=== PATIENT | female | born 1960 | race Caucasian/White ===

== ENCOUNTER 2016-07-20 16:46 | Emergency (ER) | payer OTHER ==
--- NOTE | 2016-07-20 18:54 | DIAGNOSTIC IMAGING REPORT ---
PROCEDURE: XR ABD SERIES 2V ABD/1V CHEST INDICATION: Right pain. Nausea and vomiting. History stones. TECHNIQUE: AP supine and upright views with PA view chest. COMPARISON: Compare radiographs of the lumbar spine on 11/21/2015. FINDINGS: ABDOMEN: Bowel pattern is within normal limits (mild gaseous distention). No evidence of free air. There is a large 5 cm calcified uterine fibroid overlying the lower pelvis. Mild dextroscoliosis and degenerative changes of the lumbar spine. CHEST: Lungs are clear. Heart and mediastinum are normal. Thorax is normal. IMPRESSION: 1. Negative acute abdomen. 2. Negative chest.
--- NOTE | 2016-07-20 19:09 | ED CLINICAL REPORT ---
Clinical Report - Physicians/Mid Levels [facility] [address] [place] [address] 07/20/2016 16:47 Patient: LAURA ROQUE Time Seen: 17:04. Arrived- By private vehicle. Historian- patient. HISTORY OF PRESENT ILLNESS Chief Complaint: FLANK PAIN. This started today at about 1:30 and still present. It was abrupt in onset and has been constant and waxing/waning. The symptoms are described as severe. Modifying factors- worsened by movement. The patient has had severe right-sided flank pain. No pelvic pain, pain with urination, urinary frequency, urgency of urination or hematuria. The patient is post-menopausal. REVIEW OF SYSTEMS No calf pain, chest pain, difficulty breathing, pedal edema or palpitations. No black stools, bloody stools or constipation. She has had a mild cough productive of green sputum. She has had mild loose stools. She has had nausea. She has had vomiting ("dry heaves"). The vomiting has occurred several times. No blood-tinged emesis, coffee-grounds emesis or frankly bloody emesis. All systems otherwise negative, except as recorded above. PAST HISTORY ( PCP - [place]). SOCIAL HISTORY Current every day light tobacco smoker (cigarette)- less than 1/2 a pack per day. Alcohol use; consumes five wine daily. No drug use. Residence: [place] she lives with a family member. FAMILY HISTORY Stroke in first-degree relative (mother). ADDITIONAL NOTES The nursing notes have been reviewed. PHYSICAL EXAM Vital Signs: 07/20/2016 16:57 BP: 176/107. HR: 75. RR: 18. O2 saturation: 99%. Temp: 98.4 F. Have been reviewed. Appearance: Alert. Anxious. ENT: Pharynx normal. Neck: Neck supple. CVS: Heart sounds normal. Respiratory: No respiratory distress. (Diffuse rattles over large airways that clear with cough). Abdomen: Soft and nontender. Bowel sounds normal. No organomegaly. No mass. Back: Normal external inspection. No CVA tenderness. Skin: Skin warm and dry. Normal skin color. Normal skin turgor. Extremities: Extremities nontender. No calf tenderness. No lower extremity edema. LABS, X-RAYS, AND EKG KUB: ( Exam(s): XR ABD SERIES 2V ABD/1V CHEST Date of Exam: 07/20/2016 __ PROCEDURE: XR ABD SERIES 2V ABD/1V CHEST INDICATION: Right pain. Nausea and vomiting. History stones. TECHNIQUE: AP supine and upright views with PA view chest. COMPARISON: Compare radiographs of the lumbar spine on 11/21/2015. FINDINGS: ABDOMEN: Bowel pattern is within normal limits (mild gaseous distention). No evidence of free air. There is a large 5 cm calcified uterine fibroid overlying the lower pelvis. Mild dextroscoliosis and degenerative changes of the lumbar spine. CHEST: Lungs are clear. Heart and mediastinum are normal. Thorax is normal. IMPRESSION: 1. Negative acute abdomen. 2. Negative chest.). The X-rays were interpreted by the radiologist and contemporaneously by me. Laboratory Tests: UA-Culture if indicated: (MIGUEL ÁNGEL: 07/20/2016 16:58) ( MsgRcvd 07/20/2016 17:28) Final results Test Result Flag Units (Reference) URINE COLOR STRAW URINE APPEARANCE CLEAR URINE GLUCOSE NEGATIVE (NEGATIVE) URINE BILIRUBIN NEGATIVE (NEGATIVE) URINE KETONE NEGATIVE (NEGATIVE) URINE SPECIFIC GRAVITY <= 1.005 L (1.010-1.030) URINE PH 6.5 (5.0-8.0) URINE PROTEIN NEGATIVE (NEGATIVE) URINE UROBILINOGEN 0.2 EU/dL (0.2-1.0) URINE NITRITE NEGATIVE (NEGATIVE) URINE BLOOD NEGATIVE (NEGATIVE) URINE LEUK ESTERASE NEGATIVE (NEGATIVE) URINE RBC NONE SEEN rbc/hpf (0-1) URINE WBC 0-1 wbc/hpf (0-1) URINE EPITHELIAL CELLS 0-1 EPI/hpf (0-5) URINE BACTERIA TRACE (<1+) (NONE SEEN) URINE COMMENT CULT NOT INDICATED URINE CULTURES ARE SET-UP BASED ON THE FOLLOWING CRITERIA:POSITIVE NITRITEPOSITIVE LEUKOCYTE ESTERASEGREATER THAN 10 WHITE BLOOD CELLSMODERATE (2+) OR GREATER BACTERIA CBC w Diff: (MIGUEL ÁNGEL: 07/20/2016 17:08) ( [facility] [place] 07/20/2016 17:33) Final results Test Result Flag Units (Reference) WHITE BLOOD COUNT 10.8 K/uL (4.5-11.5) RED BLOOD COUNT 4.65 M/uL (4.00-5.20) HEMOGLOBIN 14.9 gm/dL (12.0-16.0) HEMATOCRIT 44.4 % (36.0-46.0) MEAN CELL VOLUME 96 fL (80-100) MEAN CORPUSCULAR HGB 32 pg (26-34) MEAN CORPUSCULAR HGB CONC 34 g/dL (31-37) RED CELL DISTRIBUTION WIDTH 13.3 % (11.6-14.8) PLATELET COUNT 241 K/uL (150-400) NEUTROPHIL % 67.1 % (50-75) LYMPH % 25.7 % (25-40) MONO % 5.3 % (3-14) EOSINOPHIL % 1.7 % (0-4) BASOPHIL % 0.2 % (0-2) CMP: (MIGUEL ÁNGEL: 07/20/2016 17:08) ( [facility] [place] 07/20/2016 17:39) Final results Test Result Flag Units (Reference) GLUCOSE 83 mg/dL (70-110) BUN 14 mg/dL (7-18) CREATININE 0.6 mg/dL (0.6-1.3) Estimated GFR >60 mL/min Estimated GFR- >60 mL/min Note: Persistent reduction over 3 months in eGFR<60 mL/min/1.73 m2 defines CKD. Patients with eGFR values>=60 mL/min/1.73 m2 may also have CKD if evidence ofpersistent proteinuria. Additional information may be foundat [email or web address].org. SODIUM 133 L mmol/L (136-145) POTASSIUM 4.3 mmol/L (3.5-5.1) CHLORIDE 97 L mmol/L (98-107) CARBON DIOXIDE 26 mmol/L (21-32) CALCIUM 8.8 mg/dL (8.5-10.1) TOTAL PROTEIN 7.4 g/dL (6.4-8.2) ALBUMIN 4.0 g/dL (3.3-5.0) BILIRUBIN, TOTAL 0.3 mg/dL (0.0-1.0) ALKALINE PHOSPHATASE 86 U/L (46-116) AST (SGOT) 30 U/L (15-37) ALT (SGPT) 33 U/L (12-78) LIPASE 270 U/L (73-393) AMYLASE 49 U/L (25-115) . PROGRESS AND PROCEDURES Course of Care: we discussed the potential benefits and risks of CT imaging. After this discussion the patient said that she did not want to pursue a CT study at this time and acknowledges the risk for a missed or erroneous diagnosis. Symptoms better. Vital signs have been reviewed. Physical exam findings are improved. Patient/family counseled. Old medical records reviewed. Disposition: Discharged. Condition: stable. CLINICAL IMPRESSION Acute bronchitis. Acute right flank pain INSTRUCTIONS Drink plenty of fluids. Do not smoke- benefits of smoking cessation discussed (>3 -10 minutes). Seek medical help to quit smoking. Warnings: Further evaluation is necessary. GENERAL WARNINGS: Return or contact your physician immediately if your condition worsens or changes unexpectedly, if not improving as expected, or if other problems arise. Specifically return if pain returns. Your Current Medications: CONTINUE TAKING THE FOLLOWING MEDICATIONS: ALPRAZolam Oral : 0.5 mg daily. DULoxetine HCl Oral : daily. Metoprolol 25mg daily*. Prescription Medications: Zithromax 250 mg tablets: take 2 orally today, followed by 1 daily for the next 4 days. No refills. Substitution is permissible. Follow-up: Follow up with your doctor Friday in two days. Call for an appointment. Understanding of the discharge instructions verbalized by patient and family. (Electronically signed by Ken Martinez MD 07/20/2016 19:34)
--- NOTE | 2016-07-20 19:09 | ED NURSING NOTES ---
Clinical Report - Nurses [facility] [address] [place] [address] 07/20/2016 16:47 Patient: LAURA ROQUE TRIAGE Triage time 16:58. Acuity: LEVEL 3. Chief Complaint: LOW BACK PAIN and RIGHT-SIDED FLANK PAIN. Alert. No acute distress. ( Pt. states she has had kidney stones multiple times in the past and she thinks she may be passing one today.). SEPSIS SCREEN: Sepsis Screen. Negative (no infection suspected/documented). EMMANUEL COMA SCORE: [place] Coma Scale: 15- eyes open spontaneously (4); best verbal response- oriented x 4 (5); best motor response- obeys commands (6). --17:05 Lori Robles R.N. 16:57 07/20/16. BP: 176/107. HR: 75. RR: 18. O2 saturation: 99%. Temp: 98.4 F. Pain level now 8/10. --17:05 Lori Robles R.N. Weight: 63.5 kg stated. Height/Length: 64 inches Per Patient. BMI: 24. --16:59 Lori Robles R.N. Medications ALPRAZolam Oral 0.5 mg, daily. Metoprolol 25mg daily. --17:01 Lori Robles R.N. DULoxetine HCl Oral, daily. --17:02 Lori Robles R.N. Allergies Iodine contrast: "It will kill me.". --17:01 Lori Robles R.N. History Arrived by private vehicle. Historian: patient. Unaccompanied. Primary physician (Gabby). Onset. (1330 today). 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 (800mg at 1330). PAST MEDICAL HX: Immunizations: up-to-date. SOCIAL HX: Light tobacco smoker (cigarette)- less than 1/2 a pack per day. Alcohol use; consumes five wine daily. No drug use. ABUSE ASSESSMENT: Abuse assessment: The patient was asked "Do you feel safe in your home?" and "Has anyone hurt you or threatened to hurt you?". No report of abuse. NUTRITIONAL RISK ASSESSMENT: The nutritional risk assessment revealed no deficiencies. FUNCTIONAL ASSESSMENT: Functional assessment: no impairments noted. LEARNING NEEDS ASSESSMENT: The learning needs assessment revealed no barriers. --17:05 Lori Robles R.N. PROBLEMS: Fibromyalgia. Cervical Radiculopathy. Cervical Strain. Ureterolithiasis. Bronchitis. Urinary Calculi. Anxiety Reaction. Hypertension. Nephrolithiasis. --17:02 Lori Robles R.N. ADDITIONAL SURGERIES: Appendectomy. --17:02 Lori Robles R.N. Interventions ID band on patient. Ambulatory. --17:05 Lori Robles R.N. PHYSICAL ASSESSMENT Ambulatory to room. GENERAL / NEURO / PSYCH: Alert. Appears in no acute distress. HEENT: Mucous membranes are pink. RESPIRATORY: Respirations not labored. CVS: Capillary refill less than 2 seconds. SKIN: Skin is warm and dry. --17:05 Lori Robles R.N. NURSING PROGRESS NOTES Patient gowned. Head of bed elevated. Two patient identifiers checked. Call light placed in reach. Side rails up x 2. Bed placed in lowest position. Brakes of bed on. Patient ready for evaluation- chart flagged. --17:05 Lori Robles R.N. 17:07 07/20/2016 Site #1 started via IV in the right antecubital space with an 18g angiocath; one attempt. Blood drawn: rainbow set. Labeled in the presence of the patient and sent to the lab. Saline lock flushed with 10 mL saline (accessed by NURY Coleman). --17:07 Lori Robles R.N. Patient ID band checked for patient name, birthdate and medical record number: patient confirmed. Instructions provided to collect clean catch urine and patient verbalized understanding. Clean catch urine collected with return of yellow-colored clear urine; sample sent to lab for urinalysis. Specimen labeled in the presence of the patient. --17:07 Lori Robles R.N. 17:19 07/20/2016 Started bag #1 1000 mL IV Fluids IV NS (Saline); at 1000 mL/hr over 1 hour(s) via site #1 via IV pump. Allergies verified and confirmed 5 rights. IV patency established. IV site checked: no pain, redness, or swelling. IV flushed thoroughly pre- and post-medication administration. --17:19 Lori Robles R.N. 17:19 07/20/2016 Zofran (Ondansetron HCl) IVP 4 mg given over 1 minute(s) via site #1. Allergies verified and confirmed 5 rights. IV patency established. IV site checked: no pain, redness, or swelling. IV flushed thoroughly pre- and post-medication administration. --17:19 Lori Robles R.N. 17:35 07/20/2016 Toradol IVP 30 mg given over 2 minute(s) via site #1. Allergies verified and confirmed 5 rights. IV patency established. IV site checked: no pain, redness, or swelling. IV flushed thoroughly pre- and post-medication administration. --17:35 Lori Robles R.N. 17:52 07/20/2016 Toradol IVP Response: no adverse reaction pain is gone now. Symptoms have improved the patient feels better. --17:52 Lori Robles R.N. ( RT at the bedside for breathing treatment.). --18:22 Lori Robles R.N. 18:22 07/20/16. BP: 130/78. HR: 74. RR: 16. O2 saturation: 100%. Pain level now 0/10. --18:22 Lori Robles R.N. 18:23 07/20/2016 Duoneb (Ipratropium-Albuterol) Neb TX 1 unit dose given. Given by the respiratory therapist. Allergies verified and confirmed 5 rights. --18:23 Lori Robles R.N. Patient returned from radiology by stretcher with tech. --18:45 Lori Robles R.N. 18:57 07/20/2016 IV Fluids IV NS Discontinued: bag #1 completed upon discharge. Total amount infused: 1000 mL. IV patency established. IV site checked: no pain, redness, or swelling. IV flushed thoroughly. --19:22 Joycelyn Fallon DISPOSITION / DISCHARGE 19:20 07/20/2016 Site #1 removed upon discharge. Catheter intact. Bandage applied. --19:20 Joycelyn Fallon Departure time: 19:21. Condition at departure: improved. No learning barriers present. Discharge instructions provided and reviewed with the patient. Reviewed medication(s) side effects, precautions, dosing and course information. Prescription(s) given to the patient. Treatments reviewed. Follow up contact number. Patient verbalized understanding. Written instructions provided in Portuguese. No warning instructions, referrals given to the patient, diet instructions, activity restrictions or note given. No stop smoking instructions. The patient was discharged by the physician. She was discharged home and accompanied by family. She left the Emergency Department ambulatory and via private vehicle. Family member driving. FALL RISK ASSESSMENT: Fall risk assessment completed. No fall risk identified. --19:22 Joycelyn Fallon 19:20 07/20/16. BP: 148/89. HR: 78. RR: 18. O2 saturation: 99%. Temp: 98.5 F. Pain level now: 06/07. --19:22 Joycelyn Fallon Locked/Released at 07/20/2016 19:22 by Joycelyn Fallon
--- NOTE | 2016-07-20 19:09 | ED CLINICAL REPORT ---
Clinical Report - Physicians/Mid Levels [facility] [address] [place] [address] 07/20/2016 16:47 Patient: LAURA ROQUE Time Seen: 17:04. Arrived- By private vehicle. Historian- patient. HISTORY OF PRESENT ILLNESS Chief Complaint: FLANK PAIN. This started today at about 1:30 and still present. It was abrupt in onset and has been constant and waxing/waning. The symptoms are described as severe. Modifying factors- worsened by movement. The patient has had severe right-sided flank pain. No pelvic pain, pain with urination, urinary frequency, urgency of urination or hematuria. The patient is post-menopausal. REVIEW OF SYSTEMS No calf pain, chest pain, difficulty breathing, pedal edema or palpitations. No black stools, bloody stools or constipation. She has had a mild cough productive of green sputum. She has had mild loose stools. She has had nausea. She has had vomiting ("dry heaves"). The vomiting has occurred several times. No blood-tinged emesis, coffee-grounds emesis or frankly bloody emesis. All systems otherwise negative, except as recorded above. PAST HISTORY ( PCP - [place]). SOCIAL HISTORY Current every day light tobacco smoker (cigarette)- less than 1/2 a pack per day. Alcohol use; consumes five wine daily. No drug use. Residence: [place] she lives with a family member. FAMILY HISTORY Stroke in first-degree relative (mother). ADDITIONAL NOTES The nursing notes have been reviewed. PHYSICAL EXAM Vital Signs: 07/20/2016 16:57 BP: 176/107. HR: 75. RR: 18. O2 saturation: 99%. Temp: 98.4 F. Have been reviewed. Appearance: Alert. Anxious. ENT: Pharynx normal. Neck: Neck supple. CVS: Heart sounds normal. Respiratory: No respiratory distress. (Diffuse rattles over large airways that clear with cough). Abdomen: Soft and nontender. Bowel sounds normal. No organomegaly. No mass. Back: Normal external inspection. No CVA tenderness. Skin: Skin warm and dry. Normal skin color. Normal skin turgor. Extremities: Extremities nontender. No calf tenderness. No lower extremity edema. LABS, X-RAYS, AND EKG KUB: ( Exam(s): XR ABD SERIES 2V ABD/1V CHEST Date of Exam: 07/20/2016 __ PROCEDURE: XR ABD SERIES 2V ABD/1V CHEST INDICATION: Right pain. Nausea and vomiting. History stones. TECHNIQUE: AP supine and upright views with PA view chest. COMPARISON: Compare radiographs of the lumbar spine on 11/21/2015. FINDINGS: ABDOMEN: Bowel pattern is within normal limits (mild gaseous distention). No evidence of free air. There is a large 5 cm calcified uterine fibroid overlying the lower pelvis. Mild dextroscoliosis and degenerative changes of the lumbar spine. CHEST: Lungs are clear. Heart and mediastinum are normal. Thorax is normal. IMPRESSION: 1. Negative acute abdomen. 2. Negative chest.). The X-rays were interpreted by the radiologist and contemporaneously by me. Laboratory Tests: UA-Culture if indicated: (MIGUEL ÁNGEL: 07/20/2016 16:58) ( MsgRcvd 07/20/2016 17:28) Final results Test Result Flag Units (Reference) URINE COLOR STRAW URINE APPEARANCE CLEAR URINE GLUCOSE NEGATIVE (NEGATIVE) URINE BILIRUBIN NEGATIVE (NEGATIVE) URINE KETONE NEGATIVE (NEGATIVE) URINE SPECIFIC GRAVITY <= 1.005 L (1.010-1.030) URINE PH 6.5 (5.0-8.0) URINE PROTEIN NEGATIVE (NEGATIVE) URINE UROBILINOGEN 0.2 EU/dL (0.2-1.0) URINE NITRITE NEGATIVE (NEGATIVE) URINE BLOOD NEGATIVE (NEGATIVE) URINE LEUK ESTERASE NEGATIVE (NEGATIVE) URINE RBC NONE SEEN rbc/hpf (0-1) URINE WBC 0-1 wbc/hpf (0-1) URINE EPITHELIAL CELLS 0-1 EPI/hpf (0-5) URINE BACTERIA TRACE (<1+) (NONE SEEN) URINE COMMENT CULT NOT INDICATED URINE CULTURES ARE SET-UP BASED ON THE FOLLOWING CRITERIA:POSITIVE NITRITEPOSITIVE LEUKOCYTE ESTERASEGREATER THAN 10 WHITE BLOOD CELLSMODERATE (2+) OR GREATER BACTERIA CBC w Diff: (MIGUEL ÁNGEL: 07/20/2016 17:08) ( [facility] [place] 17:33) Final results Test Result Flag Units (Reference) WHITE BLOOD COUNT 10.8 K/uL (4.5-11.5) RED BLOOD COUNT 4.65 M/uL (4.00-5.20) HEMOGLOBIN 14.9 gm/dL (12.0-16.0) HEMATOCRIT 44.4 % (36.0-46.0) MEAN CELL VOLUME 96 fL (80-100) MEAN CORPUSCULAR HGB 32 pg (26-34) MEAN CORPUSCULAR HGB CONC 34 g/dL (31-37) RED CELL DISTRIBUTION WIDTH 13.3 % (11.6-14.8) PLATELET COUNT 241 K/uL (150-400) NEUTROPHIL % 67.1 % (50-75) LYMPH % 25.7 % (25-40) MONO % 5.3 % (3-14) EOSINOPHIL % 1.7 % (0-4) BASOPHIL % 0.2 % (0-2) CMP: (MIGUEL ÁNGEL: 07/20/2016 17:08) ( [facility] [place] 17:39) Final results Test Result Flag Units (Reference) GLUCOSE 83 mg/dL (70-110) BUN 14 mg/dL (7-18) CREATININE 0.6 mg/dL (0.6-1.3) Estimated GFR >60 mL/min Estimated GFR- >60 mL/min Note: Persistent reduction over 3 months in eGFR<60 mL/min/1.73 m2 defines CKD. Patients with eGFR values>=60 mL/min/1.73 m2 may also have CKD if evidence ofpersistent proteinuria. Additional information may be foundat [email or web address]. SODIUM 133 L mmol/L (136-145) POTASSIUM 4.3 mmol/L (3.5-5.1) CHLORIDE 97 L mmol/L (98-107) CARBON DIOXIDE 26 mmol/L (21-32) CALCIUM 8.8 mg/dL (8.5-10.1) TOTAL PROTEIN 7.4 g/dL (6.4-8.2) ALBUMIN 4.0 g/dL (3.3-5.0) BILIRUBIN, TOTAL 0.3 mg/dL (0.0-1.0) ALKALINE PHOSPHATASE 86 U/L (46-116) AST (SGOT) 30 U/L (15-37) ALT (SGPT) 33 U/L (12-78) LIPASE 270 U/L (73-393) AMYLASE 49 U/L (25-115) . PROGRESS AND PROCEDURES Course of Care: we discussed the potential benefits and risks of CT imaging. After this discussion the patient said that she did not want to pursue a CT study at this time and acknowledges the risk for a missed or erroneous diagnosis. Symptoms better. Vital signs have been reviewed. Physical exam findings are improved. Patient/family counseled. Old medical records reviewed. Disposition: Discharged. Condition: stable. CLINICAL IMPRESSION Acute bronchitis. Acute right flank pain INSTRUCTIONS Drink plenty of fluids. Do not smoke- benefits of smoking cessation discussed (>3 -10 minutes). Seek medical help to quit smoking. Warnings: Further evaluation is necessary. GENERAL WARNINGS: Return or contact your physician immediately if your condition worsens or changes unexpectedly, if not improving as expected, or if other problems arise. Specifically return if pain returns. Your Current Medications: CONTINUE TAKING THE FOLLOWING MEDICATIONS: ALPRAZolam Oral : 0.5 mg daily. DULoxetine HCl Oral : daily. Metoprolol 25mg daily*. Prescription Medications: Zithromax 250 mg tablets: take 2 orally today, followed by 1 daily for the next 4 days. No refills. Substitution is permissible. Follow-up: Follow up with your doctor Friday in two days. Call for an appointment. Understanding of the discharge instructions verbalized by patient and family. (Electronically signed by Ken Martinez MD 07/20/2016 19:34)
--- NOTE | 2016-07-20 19:09 | ED ORDER SUMMARY ---
..... Patient: LAURA ROQUE OrderSheet [facility] VisitID: [id number] [address] [place] [address] 56y, F Registration Date/Time: 07/20/2016 ORDER SHEET Weight: 63.5 kg (stated) Allergies: Iodine contrast: "It will kill me." GENERAL ORDERS: CBC w Diff Urgent (17:05 07/20/2016 Fiordaliza SEGOVIA) (Ack 17:06 Aly) (17:07 SReitz R.N.) (17:11 KWilliams R.N.) CMP Urgent (17:05 07/20/2016 Fiordaliza SEGOVIA) (Ack 17:06 Aly) (17:07 SReitz R.N.) (17:11 KWilliams R.N.) UA-Culture if indicated Urgent (17:05 07/20/2016 Fiordaliza SEGOVIA) (Ack 17:06 Aly) (17:07 SReitz R.N.) (17:11 KWilliams R.N.) Amylase Urgent (17:05 07/20/2016 Fiordaliza SEGOVIA) (Ack 17:06 Aly) (17:07 SReitz R.N.) (17:11 KWilliams R.N.) Lipase Urgent (17:05 07/20/2016 Fiordaliza SEGOVIA) (Ack 17:06 Aly) (17:07 SReitz R.N.) (17:11 KWilliams R.N.) Urine Drug Screen Urgent (17:33 07/20/2016 Fiordaliza SEGOVIA) (Ack 17:41 Aly) (17:52 SReitz R.N.) Ethyl Alcohol Urgent (18:13 07/20/2016 Fiordaliza SEGOVIA) (Ack 18:17 Aly) (18:30 ALawrence ER Tech1) Abd Series 2V Abd/1V Chest Urgent (18:15 07/20/2016 Fiordaliza SEGOVIA) (Ack 18:17 Aly) (18:45 SReitz R.N.) MEDICATION ORDERS: DuoNeb Neb Tx 1 unit dose (NOW) (18:16 07/20/2016 Fiordaliza SEGOVIA) (18:23 SReitz R.N.) IV FLUIDS: IV NS : initial bolus 1000 mL (1000 mL/hr), then 150 mL/hr for 4h (NOW); Urgent (17:04 07/20/2016 Fiordaliza SEGOVIA) (17:19 Art Hirsch) Zofran IV 4 mg (NOW) (17:11 07/20/2016 Fiordaliza SEGOVIA) (17:19 Art Hirsch) Toradol IV 30 mg (NOW) (17:33 07/20/2016 Fiordaliza SEGOVIA) (17:35 Art Hirsch) ORDER SHEET NOTES: [Electronically signed by Ly May R.N. (19:22 07/20/2016)] [Electronically signed by Ken Martinez MD (19:34 07/20/2016)] [Electronically locked/signed by Ly May R.N. (19:22 07/20/2016)]
--- NOTE | 2016-07-20 19:09 | ED ORDER SUMMARY ---
..... Patient: LAURA ROQUE OrderSheet [facility] VisitID: [id number] [address] [place] [address] 56y, F Registration Date/Time: 07/20/2016 ORDER SHEET Weight: 63.5 kg (stated) Allergies: Iodine contrast: "It will kill me." GENERAL ORDERS: CBC w Diff Urgent (17:05 07/20/2016 Fiordaliza SEGOVIA) (Ack 17:06 Aly) (17:07 SReitz R.N.) (17:11 KWilliams R.N.) CMP Urgent (17:05 07/20/2016 Fiordaliza SEGOVIA) (Ack 17:06 Aly) (17:07 SReitz R.N.) (17:11 KWilliams R.N.) UA-Culture if indicated Urgent (17:05 07/20/2016 Fiordaliza SEGOVIA) (Ack 17:06 Aly) (17:07 SReitz R.N.) (17:11 KWilliams R.N.) Amylase Urgent (17:05 07/20/2016 Fiordaliza SEGOVIA) (Ack 17:06 Aly) (17:07 SReitz R.N.) (17:11 KWilliams R.N.) Lipase Urgent (17:05 07/20/2016 Fiordaliza SEGOVIA) (Ack 17:06 Aly) (17:07 SReitz R.N.) (17:11 KWilliams R.N.) Urine Drug Screen Urgent (17:33 07/20/2016 Fiordaliza SEGOVIA) (Ack 17:41 Aly) (17:52 SReitz R.N.) Ethyl Alcohol Urgent (18:13 07/20/2016 Fiordaliza SEGOVIA) (Ack 18:17 Aly) (18:30 ALawrence ER Tech1) Abd Series 2V Abd/1V Chest Urgent (18:15 07/20/2016 Fiordaliza SEGOVIA) (Ack 18:17 Aly) (18:45 SReitz R.N.) MEDICATION ORDERS: DuoNeb Neb Tx 1 unit dose (NOW) (18:16 07/20/2016 Fiordaliza SEGOVIA) (18:23 SReitz R.N.) IV FLUIDS: IV NS : initial bolus 1000 mL (1000 mL/hr), then 150 mL/hr for 4h (NOW); Urgent (17:04 07/20/2016 Fiordaliza SEGOVIA) (17:19 Art Hirsch) Zofran IV 4 mg (NOW) (17:11 07/20/2016 Fiordaliza SEGOVIA) (17:19 Art Hirsch) Toradol IV 30 mg (NOW) (17:33 07/20/2016 Fiordaliza SEGOVIA) (17:35 Art Hirsch) ORDER SHEET NOTES: [Electronically signed by Ly May R.N. (19:22 07/20/2016)] [Electronically signed by Ken Martinez MD (19:34 07/20/2016)] [Electronically locked/signed by Ly May R.N. (19:22 07/20/2016)]
--- NOTE | 2016-07-20 19:34 | ED DISCHARGE INSTRUCTIONS ---
Patient: LAURA ROQUE General Instructions [facility] VisitID: [id number] [address] [place] [address] 56y, F Registration Date/Time: 07/20/2016 Acute bronchitis. Acute right flank pain INSTRUCTIONS Drink plenty of fluids. Do not smoke- benefits of smoking cessation discussed (>3 -10 minutes). Seek medical help to quit smoking. Warnings: Further evaluation is necessary. GENERAL WARNINGS: Return or contact your physician immediately if your condition worsens or changes unexpectedly, if not improving as expected, or if other problems arise. Specifically return if pain returns. Your Current Medications: CONTINUE TAKING THE FOLLOWING MEDICATIONS: ALPRAZolam Oral : 0.5 mg daily. DULoxetine HCl Oral : daily. Metoprolol 25mg daily*. Prescription Medications: Zithromax 250 mg tablets: take 2 orally today, followed by 1 daily for the next 4 days. No refills. Substitution is permissible. Follow-up: Follow up with your doctor Friday in two days. Call for an appointment. Understanding of the discharge instructions verbalized by patient and family. ADDITIONAL INFORMATION Bronchitis (Adult: Abx Tx) BRONCHITIS is an infection of the air passages (bronchial tubes). It often occurs during the common cold. Symptoms include cough with mucus (phlegm) and low-grade fever. Bronchitis usually lasts 7-14 days. Mild cases can be treated with simple home remedies. More severe infection is treated with an antibiotic. Home Care: If symptoms are severe, rest at home for the first 2-3 days. When you resume activity, don't let yourself get too tired. Do not smoke. Avoid being exposed to the smoke of others. You may use acetaminophen (Tylenol) or ibuprofen (Motrin, Advil) to control fever or pain, unless another medicine was prescribed for this. [NOTE: If you have chronic liver or kidney disease or ever had a stomach ulcer or GI bleeding, talk with your doctor before using these medicines.] Your appetite may be poor, so a light diet is fine. Avoid dehydration by drinking 6-8 glasses of fluids per day (water, soft, drinks, juices, tea, soup, etc.). Extra fluids will help loosen secretions in the lungs. Fwec-gaz-uzfxape cough medicines that containdextromethorphan(such as Robitussin DM) and decongestants (Actifed or Sudafed) may help relieve cough and congestion. [NOTE: Do not use decongestants if you have high blood pressure.] Finish all antibiotic medicine, even if you are feeling better after only a few days. Follow Up with your doctor or as directed if you dont start to feel better after three days. [NOTE: If you are age 65 or older, or if you have chronic asthma or COPD, we recommend a PNEUMOCOCCAL VACCINATION every five years and a yearly INFLUENZAVACCINATION (FLU-SHOT) every . Ask your doctor about this. If you had an X-ray, a radiologist will review it. You will be notified of any new findings that may affect your care.] Get Prompt Medical Attention if any of the following occur: Fever over 100.4F (38.0C) for more than three days Trouble breathing, wheezing or pain with breathing Coughing up blood or increased amounts of colored sputum Weakness, drowsiness, headache, facial pain, ear pain or a stiff neck Flank Pain[Uncertain Cause] The flank is the area between the upper abdomen and the back. Pain here is often related to the kidneyan infection or a kidney stone. Other causes of flank pain include spinal arthritis, pinched nerve from a disk injury, back muscle strain or spasm. The cause of your flank pain is not certain and further tests may be needed. Home Care: You may use acetaminophen (Tylenol) or ibuprofen (Motrin, Advil) to control pain, unless another medicine was prescribed. [NOTE: If you have chronic liver or kidney disease or ever had a stomach ulcer or GI bleeding, talk with your doctor before using these medicines.] If the cause of your pain is coming from the muscles, ice or heat may give relief. During the first two days after injury, apply an ICE PACK to the painful area for 20 minutes every 2-4 hours. This will reduce swelling and pain. HEAT (hot shower, hot bath or heating pad) works well for muscle spasm. You can start with ice, then switch to heat after two days. Some patients feel best alternating ice and heat treatments. Use the one method that feels the best to you. Follow Up with your doctor or as advised by our staff for further evaluation if your symptoms are not improving over the next few days. Return Promptly or contact your doctor if any of the following occur: Repeated vomiting Fever of 100.4F (38C) or higher, or as directed by your healthcare provider Increasing flank pain Pain that spreads to the front of the abdomen Dizziness, weakness or fainting Blood in your urine Burning with urination or frequent urination Increasing pain in the leg Numbness or weakness in the leg How To Quit Smoking Smoking is one of the hardest habits to break. About half of all those who have ever smoked have been able to quit, and most of those (about 70%) who still smoke want to quit. Here are some of the best ways to stop smoking. Keep Trying: It takes most smokers about 8 tries before they are finally able to fully quit. So, the more often you try and fail, the better your chance of quitting the next time! So, don't give up! Go Cold [place]: Most ex-smokers quit cold turkey. Trying to cut back gradually doesn't seem to work as well, perhaps because it continues the smoking habit. Also, it is possible to fool yourself by inhaling more while smoking fewer cigarettes. This results in the same amount of nicotine in your body! Get Support: Support programs can make an important difference, especially for the heavy smoker. These groups offer lectures, methods to change your behavior and peer support. Call the free national Quitline for more information. 742-TXJE-JNN (214-140-5783). Low-cost or free programs are offered by many hospitals, local chapters of the [employer] (199-996-2560) and the [employer] (661-465-6669). Support at home is important too. Non-smokers can help by offering praise and encouragement. If the smoker fails to quit, encourage them to try again! Guew-Ice-Mjupwnn Medicines: For those who can't quit on their own, Nicotine Replacement Therapy (NRT) may make quitting much easier. Certain aids such as the nicotine patch, gum and lozenge are available without a prescription. However, it is best to use these under the guidance of your doctor. The skin patch provides a steady supply of nicotine to the body. Nicotine gum and lozenge gives temporary bursts of low levels of nicotine. Both methods take the edge off the craving for cigarettes. WARNING: If you feel symptoms of nicotine overdose, such as nausea, vomiting, dizziness, weakness, or fast heartbeat, stop using these and see your doctor. Prescription Medicines: After evaluating your smoking patterns and prior attempts at quitting, your doctor may offer a prescription medicine such as bupropion (Zyban, Wellbutrin), varenicline (Chantix, Champix), a niocotine inhaler or nasal spray. Each has its unique advantage and side effects which your doctor can review with you. Health Benefits Of Quitting: The benefits of quitting start right away and keep improving the longer you go without smokin minutes: blood pressure and pulse return to normal 8 hours: oxygen levels return to normal 2 days: ability to smell and taste begins to improve as damaged nerves start to regrow 2-3 weeks: circulation and lung function improves 1-9 months: decreased cough, congestion and shortness of breath; less tired 1 year: risk of heart attack decreases by half 5 years: risk of lung cancer decreases by half; risk of stroke becomes the same as a non-smoker For information about how to quit smoking, visit the following links: National Cancer [employer] , Clearing the Air, Quit Smoking Today - an online booklet. http://www.smokefree.gov/pubs/clearing_the_air.pdf Smokefree.gov http://smokefree.gov/ QuitNet http://www.quitnet.com/ Azithromycin Oral tablet What is this medicine? AZITHROMYCIN (az ith shahriar MYE sin) is a macrolide antibiotic. It is used to treat or prevent certain kinds of bacterial infections. It will not work for colds, flu, or other viral infections. How should I use this medicine? Take this medicine by mouth with a full glass of water. Follow the directions on the prescription label. The tablets can be taken with food or on an empty stomach. If the medicine upsets your stomach, take it with food. Take your medicine at regular intervals. Do not take your medicine more often than directed. Take all of your medicine as directed even if you think your are better. Do not skip doses or stop your medicine early. Talk to your housekeeping staff regarding the use of this medicine in children. Special care may be needed. What side effects may I notice from receiving this medicine? Side effects that you should report to your doctor or health care coordinator as soon as possible: allergic reactions like skin rash, itching or hives, swelling of the face, lips, or tongue confusion, nightmares or hallucinations dark urine difficulty breathing hearing loss irregular heartbeat or chest pain pain or difficulty passing urine redness, blistering, peeling or loosening of the skin, including inside the mouth white patches or sores in the mouth yellowing of the eyes or skin Side effects that usually do not require medical attention (report to your doctor or health care coordinator if they continue or are bothersome): diarrhea dizziness, drowsiness headache stomach upset or vomiting tooth discoloration vaginal irritation What may interact with this medicine? Do not take this medicine with any of the following medications: lincomycin This medicine may also interact with the following medications: amiodarone antacids cyclosporine digoxin magnesium nelfinavir phenytoin warfarin What if I miss a dose? If you miss a dose, take it as soon as you can. If it is almost time for your next dose, take only that dose. Do not take double or extra doses. Where should I keep my medicine? Keep out of the reach of children. Store at room temperature between 15 and 30 degrees C (59 and 86 degrees F). Throw away any unused medicine after the expiration date. What should I tell my health care provider before I take this medicine? They need to know if you have any of these conditions: kidney disease liver disease irregular heartbeat or heart disease an unusual or allergic reaction to azithromycin, erythromycin, other macrolide antibiotics, foods, dyes, or preservatives or trying to get breast-feeding What should I watch for while using this medicine? Tell your doctor or health care coordinator if your symptoms do not improve. Do not treat diarrhea with over the counter products. Contact your doctor if you have diarrhea that lasts more than 2 days or if it is severe and watery. This medicine can make you more sensitive to the sun. Keep out of the sun. If you cannot avoid being in the sun, wear protective clothing and use sunscreen. Do not use sun lamps or tanning beds/booths. You have been given the following additional information: Bronchitis, Antiobiotic Treatment (Adult) Flank Pain, Uncertain Cause Smoking Cessation Azithromycin Oral tablet (Electronically signed by Ken Martinez MD 07/20/2016 19:34)
--- NOTE | 2016-07-20 19:34 | ED MED RECONCILIATION SUMMARY ---
Patient: LAURA ROQUE Medication Reconciliation Report [facility] VisitID: [id number] [address] [place] [address] 56y, F Registration Date/Time: 07/20/2016 Weight: 63.5 kg Height/Length: 64 in. BMI: 24.0 ALLERGIES: Iodine contrast: "It will kill me." The patient's Home Medications are listed below: CONTINUE TAKING THE FOLLOWING MEDICATIONS: ALPRAZolam Oral 0.5 mg, daily DULoxetine HCl Oral, daily Metoprolol 25mg daily The source(s) of the original Home Medication information: Not obtained. The following Medications were given to the patient in the Emergency Department: IV NS IV Fluids bolus 0, then 1000 mL/hr, administered: 07/20/2016 5:19:00 PM Zofran [IVP] IVP 4 mg, administered: 07/20/2016 5:19:00 PM Toradol [IVP] IVP 30 mg, administered: 07/20/2016 5:35:00 PM Duoneb [Neb Tx] Neb TX 1 unit dose, administered: 07/20/2016 6:23:00 PM The following Medications were prescribed to the patient: Zithromax 250 mg tablets: take 2 orally today, followed by 1 daily for the next 4 days. No refills. Substitution is permissible. -- Ken Martinez MD
--- NOTE | 2016-07-20 19:34 | ED MAR SUMMARY ---
..... Medication Administration Record [facility] [address] [place] [address] Patient: LAURA ROQUE Visit ID: [id number] 56y, F Weight: 63.5 kg Height/Length: 64 in BMI: 24 ALLERGIES: Iodine contrast: "It will kill me." Start 17:19 07/20/2016 Lori Robles R.N., Stop 18:57 07/20/2016 Joycelyn Fallon Medication Administered: IV NS (SALINE), Dose: IV Fluids over 1 hour(s), Rate: 1000 mL/hr, Dispensed: 1000 mL bag, Site: #1 right AC. Medication Ordered: IV NS : initial bolus 1000 mL (1000 mL/hr), then 150 mL/hr for 4h (NOW); Urgent. Given 17:19 07/20/2016 Lori Robles R.N. Medication Administered: ZOFRAN [IVP] (ONDANSETRON HCL), Dose: 4 mg IVP over 1 minute(s), Site: #1 right AC. Medication Ordered: Zofran IV 4 mg (NOW). Given 17:35 07/20/2016 Lori Robles R.N. Medication Administered: TORADOL [IVP], Dose: 30 mg IVP over 2 minute(s), Site: #1 right AC. Medication Ordered: Toradol IV 30 mg (NOW). Given 18:23 07/20/2016 Lori Robles R.N. Medication Administered: DUONEB [NEB TX] (IPRATROPIUM-ALBUTEROL), Dose: 1 unit dose Neb TX. Medication Ordered: DuoNeb Neb Tx 1 unit dose (NOW).
--- NOTE | 2016-07-20 19:34 | ED DISCHARGE INSTRUCTIONS ---
Patient: LAURA ROQUE General Instructions [facility] VisitID: [id number] [address] [place] [address] 56y, F Registration Date/Time: 07/20/2016 Acute bronchitis. Acute right flank pain INSTRUCTIONS Drink plenty of fluids. Do not smoke- benefits of smoking cessation discussed (>3 -10 minutes). Seek medical help to quit smoking. Warnings: Further evaluation is necessary. GENERAL WARNINGS: Return or contact your physician immediately if your condition worsens or changes unexpectedly, if not improving as expected, or if other problems arise. Specifically return if pain returns. Your Current Medications: CONTINUE TAKING THE FOLLOWING MEDICATIONS: ALPRAZolam Oral : 0.5 mg daily. DULoxetine HCl Oral : daily. Metoprolol 25mg daily*. Prescription Medications: Zithromax 250 mg tablets: take 2 orally today, followed by 1 daily for the next 4 days. No refills. Substitution is permissible. Follow-up: Follow up with your doctor Friday in two days. Call for an appointment. Understanding of the discharge instructions verbalized by patient and family. ADDITIONAL INFORMATION Bronchitis (Adult: Abx Tx) BRONCHITIS is an infection of the air passages (bronchial tubes). It often occurs during the common cold. Symptoms include cough with mucus (phlegm) and low-grade fever. Bronchitis usually lasts 7-14 days. Mild cases can be treated with simple home remedies. More severe infection is treated with an antibiotic. Home Care: If symptoms are severe, rest at home for the first 2-3 days. When you resume activity, don't let yourself get too tired. Do not smoke. Avoid being exposed to the smoke of others. You may use acetaminophen (Tylenol) or ibuprofen (Motrin, Advil) to control fever or pain, unless another medicine was prescribed for this. [NOTE: If you have chronic liver or kidney disease or ever had a stomach ulcer or GI bleeding, talk with your doctor before using these medicines.] Your appetite may be poor, so a light diet is fine. Avoid dehydration by drinking 6-8 glasses of fluids per day (water, soft, drinks, juices, tea, soup, etc.). Extra fluids will help loosen secretions in the lungs. Meme-kvj-hawfolp cough medicines that containdextromethorphan(such as Robitussin DM) and decongestants (Actifed or Sudafed) may help relieve cough and congestion. [NOTE: Do not use decongestants if you have high blood pressure.] Finish all antibiotic medicine, even if you are feeling better after only a few days. Follow Up with your doctor or as directed if you dont start to feel better after three days. [NOTE: If you are age 65 or older, or if you have chronic asthma or COPD, we recommend a PNEUMOCOCCAL VACCINATION every five years and a yearly INFLUENZAVACCINATION (FLU-SHOT) every . Ask your doctor about this. If you had an X-ray, a radiologist will review it. You will be notified of any new findings that may affect your care.] Get Prompt Medical Attention if any of the following occur: Fever over 100.4F (38.0C) for more than three days Trouble breathing, wheezing or pain with breathing Coughing up blood or increased amounts of colored sputum Weakness, drowsiness, headache, facial pain, ear pain or a stiff neck Flank Pain[Uncertain Cause] The flank is the area between the upper abdomen and the back. Pain here is often related to the kidneyan infection or a kidney stone. Other causes of flank pain include spinal arthritis, pinched nerve from a disk injury, back muscle strain or spasm. The cause of your flank pain is not certain and further tests may be needed. Home Care: You may use acetaminophen (Tylenol) or ibuprofen (Motrin, Advil) to control pain, unless another medicine was prescribed. [NOTE: If you have chronic liver or kidney disease or ever had a stomach ulcer or GI bleeding, talk with your doctor before using these medicines.] If the cause of your pain is coming from the muscles, ice or heat may give relief. During the first two days after injury, apply an ICE PACK to the painful area for 20 minutes every 2-4 hours. This will reduce swelling and pain. HEAT (hot shower, hot bath or heating pad) works well for muscle spasm. You can start with ice, then switch to heat after two days. Some patients feel best alternating ice and heat treatments. Use the one method that feels the best to you. Follow Up with your doctor or as advised by our staff for further evaluation if your symptoms are not improving over the next few days. Return Promptly or contact your doctor if any of the following occur: Repeated vomiting Fever of 100.4F (38C) or higher, or as directed by your healthcare provider Increasing flank pain Pain that spreads to the front of the abdomen Dizziness, weakness or fainting Blood in your urine Burning with urination or frequent urination Increasing pain in the leg Numbness or weakness in the leg How To Quit Smoking Smoking is one of the hardest habits to break. About half of all those who have ever smoked have been able to quit, and most of those (about 70%) who still smoke want to quit. Here are some of the best ways to stop smoking. Keep Trying: It takes most smokers about 8 tries before they are finally able to fully quit. So, the more often you try and fail, the better your chance of quitting the next time! So, don't give up! Go Cold Herminie: Most ex-smokers quit cold turkey. Trying to cut back gradually doesn't seem to work as well, perhaps because it continues the smoking habit. Also, it is possible to fool yourself by inhaling more while smoking fewer cigarettes. This results in the same amount of nicotine in your body! Get Support: Support programs can make an important difference, especially for the heavy smoker. These groups offer lectures, methods to change your behavior and peer support. Call the free national Quitline for more information. 170-ZPFI-QES (492-376-2345). Low-cost or free programs are offered by many hospitals, local chapters of the [employer] (596-637-8450) and the [employer] (611-776-7138). Support at home is important too. Non-smokers can help by offering praise and encouragement. If the smoker fails to quit, encourage them to try again! Syja-Ebs-Huagnbx Medicines: For those who can't quit on their own, Nicotine Replacement Therapy (NRT) may make quitting much easier. Certain aids such as the nicotine patch, gum and lozenge are available without a prescription. However, it is best to use these under the guidance of your doctor. The skin patch provides a steady supply of nicotine to the body. Nicotine gum and lozenge gives temporary bursts of low levels of nicotine. Both methods take the edge off the craving for cigarettes. WARNING: If you feel symptoms of nicotine overdose, such as nausea, vomiting, dizziness, weakness, or fast heartbeat, stop using these and see your doctor. Prescription Medicines: After evaluating your smoking patterns and prior attempts at quitting, your doctor may offer a prescription medicine such as bupropion (Zyban, Wellbutrin), varenicline (Chantix, Champix), a niocotine inhaler or nasal spray. Each has its unique advantage and side effects which your doctor can review with you. Health Benefits Of Quitting: The benefits of quitting start right away and keep improving the longer you go without smokin minutes: blood pressure and pulse return to normal 8 hours: oxygen levels return to normal 2 days: ability to smell and taste begins to improve as damaged nerves start to regrow 2-3 weeks: circulation and lung function improves 1-9 months: decreased cough, congestion and shortness of breath; less tired 1 year: risk of heart attack decreases by half 5 years: risk of lung cancer decreases by half; risk of stroke becomes the same as a non-smoker For information about how to quit smoking, visit the following links: National Cancer Beacon , Clearing the Air, Quit Smoking Today - an online booklet. http://www.smokefree.gov/pubs/clearing_the_air.pdf Smokefree.gov http://smokefree.gov/ QuitNet http://www.quitnet.com/ Azithromycin Oral tablet What is this medicine? AZITHROMYCIN (az ith shahriar MYE sin) is a macrolide antibiotic. It is used to treat or prevent certain kinds of bacterial infections. It will not work for colds, flu, or other viral infections. How should I use this medicine? Take this medicine by mouth with a full glass of water. Follow the directions on the prescription label. The tablets can be taken with food or on an empty stomach. If the medicine upsets your stomach, take it with food. Take your medicine at regular intervals. Do not take your medicine more often than directed. Take all of your medicine as directed even if you think your are better. Do not skip doses or stop your medicine early. Talk to your senior cytogenetic technologist regarding the use of this medicine in children. Special care may be needed. What side effects may I notice from receiving this medicine? Side effects that you should report to your doctor or health point of care technician as soon as possible: allergic reactions like skin rash, itching or hives, swelling of the face, lips, or tongue confusion, nightmares or hallucinations dark urine difficulty breathing hearing loss irregular heartbeat or chest pain pain or difficulty passing urine redness, blistering, peeling or loosening of the skin, including inside the mouth white patches or sores in the mouth yellowing of the eyes or skin Side effects that usually do not require medical attention (report to your doctor or health point of care technician if they continue or are bothersome): diarrhea dizziness, drowsiness headache stomach upset or vomiting tooth discoloration vaginal irritation What may interact with this medicine? Do not take this medicine with any of the following medications: lincomycin This medicine may also interact with the following medications: amiodarone antacids cyclosporine digoxin magnesium nelfinavir phenytoin warfarin What if I miss a dose? If you miss a dose, take it as soon as you can. If it is almost time for your next dose, take only that dose. Do not take double or extra doses. Where should I keep my medicine? Keep out of the reach of children. Store at room temperature between 15 and 30 degrees C (59 and 86 degrees F). Throw away any unused medicine after the expiration date. What should I tell my health care provider before I take this medicine? They need to know if you have any of these conditions: kidney disease liver disease irregular heartbeat or heart disease an unusual or allergic reaction to azithromycin, erythromycin, other macrolide antibiotics, foods, dyes, or preservatives or trying to get breast-feeding What should I watch for while using this medicine? Tell your doctor or health point of care technician if your symptoms do not improve. Do not treat diarrhea with over the counter products. Contact your doctor if you have diarrhea that lasts more than 2 days or if it is severe and watery. This medicine can make you more sensitive to the sun. Keep out of the sun. If you cannot avoid being in the sun, wear protective clothing and use sunscreen. Do not use sun lamps or tanning beds/booths. You have been given the following additional information: Bronchitis, Antiobiotic Treatment (Adult) Flank Pain, Uncertain Cause Smoking Cessation Azithromycin Oral tablet (Electronically signed by Ken Martinez MD 07/20/2016 19:34)
--- NOTE | 2016-07-20 19:34 | ED MED RECONCILIATION SUMMARY ---
Patient: LAURA ROQUE Medication Reconciliation Report [facility] VisitID: [id number] [address] [place] [address] 56y, F Registration Date/Time: 07/20/2016 Weight: 63.5 kg Height/Length: 64 in. BMI: 24.0 ALLERGIES: Iodine contrast: "It will kill me." The patient's Home Medications are listed below: CONTINUE TAKING THE FOLLOWING MEDICATIONS: ALPRAZolam Oral 0.5 mg, daily DULoxetine HCl Oral, daily Metoprolol 25mg daily The source(s) of the original Home Medication information: Not obtained. The following Medications were given to the patient in the Emergency Department: IV NS IV Fluids bolus 0, then 1000 mL/hr, administered: 07/20/2016 5:19:00 PM Zofran [IVP] IVP 4 mg, administered: 07/20/2016 5:19:00 PM Toradol [IVP] IVP 30 mg, administered: 07/20/2016 5:35:00 PM Duoneb [Neb Tx] Neb TX 1 unit dose, administered: 07/20/2016 6:23:00 PM The following Medications were prescribed to the patient: Zithromax 250 mg tablets: take 2 orally today, followed by 1 daily for the next 4 days. No refills. Substitution is permissible. -- Ken Martinez MD
--- NOTE | 2016-07-20 19:34 | ED MAR SUMMARY ---
..... Medication Administration Record [facility] [address] [place] [address] Patient: LAURA ROQUE Visit ID: [id number] 56y, F Weight: 63.5 kg Height/Length: 64 in BMI: 24 ALLERGIES: Iodine contrast: "It will kill me." Start 17:19 07/20/2016 Lori Robles R.N., Stop 18:57 07/20/2016 Joycelyn Fallon Medication Administered: IV NS (SALINE), Dose: IV Fluids over 1 hour(s), Rate: 1000 mL/hr, Dispensed: 1000 mL bag, Site: #1 right AC. Medication Ordered: IV NS : initial bolus 1000 mL (1000 mL/hr), then 150 mL/hr for 4h (NOW); Urgent. Given 17:19 07/20/2016 Lori Robles R.N. Medication Administered: ZOFRAN [IVP] (ONDANSETRON HCL), Dose: 4 mg IVP over 1 minute(s), Site: #1 right AC. Medication Ordered: Zofran IV 4 mg (NOW). Given 17:35 07/20/2016 Lori Robles R.N. Medication Administered: TORADOL [IVP], Dose: 30 mg IVP over 2 minute(s), Site: #1 right AC. Medication Ordered: Toradol IV 30 mg (NOW). Given 18:23 07/20/2016 Lori Robles R.N. Medication Administered: DUONEB [NEB TX] (IPRATROPIUM-ALBUTEROL), Dose: 1 unit dose Neb TX. Medication Ordered: DuoNeb Neb Tx 1 unit dose (NOW).
== END 2016-07-20 19:15 | disposition home or self-care (01) ==
LOC: ED SRH 16:46
DX: J20.9 Acute bronchitis, unspecified (principal); R10.9 Unspecified abdominal pain; I10 Essential (primary) hypertension; Z79.899 Other long term (current) drug therapy; F17.210 Nicotine dependence, cigarettes, uncomplicated; Z91.041 Radiographic dye allergy status
CPT/HCPCS: 82623; 90004; 90100; 92010; 92235; 92530; 92760; 92761; 92762; 92763; 92764; 92765; 92766; 92767; 95059